=== PATIENT | female | born 1955 | race Caucasian/White ===

== ENCOUNTER → 2016-09-23 | Outpatient (CLI) | payer BC, OTHER ==
[2016-09-23 08:48] LABS: Basophils # (A) 0.1 k/uL (0-0.2); Basophils % (A) 1 %; CH 29.4; CHCM 32.3; Eosinophils # (A) 0.3 k/uL (0-0.7); Eosinophils % (A) 4 %; HCT 45.9 % (34.0-46.0); HDW 2.15; Luc # (Auto) 0.16; Luc % (Auto) 2; Lymphocytes # (A) 1.8 k/uL (1.0-4.8); Lymphocytes % (A) 22 %; MCHC 32.8 g/dL (31.0-37.0); MCV 91.5 fL (80.0-100.0); Mean Platelet Volume 7.3; Monocytes # (A) 0.4 k/uL (0-1.0); Monocytes % (A) 5 %; Neutrophils # (A) 5.6 k/uL (1.3-7.7); Neutrophils % (A) 67 %; RBC 5.01 m/uL (3.80-5.40); RDW 13.5 % (11.5-15.5); WBC 8.3 k/uL (3.8-10.6); WBC (Perox) 8.18
[2016-09-23 11:59] LABS: Erythrocyte Sedimentation Rate 31 mm/hr (0-20)
[2016-09-23 12:28] LABS: ALT 21 U/L (9-52); AST 24 U/L (14-36); Alkaline Phosphatase 113 U/L (38-126); Anion Gap 12 mmol/L; Blood Urea Nitrogen 15 mg/dL (7-17); Calcium 9.4 mg/dL (8.4-10.2); Carbon Dioxide 24 mmol/L (22-30); Chloride 106 mmol/L (98-107); Cholesterol 166 mg/dL (<200); Glucose 103 mg/dL (74-99); HDL Cholesterol 70 mg/dL (40-60); Non-African American GFR(MDRD) >60 (>60 ml/min/1.73 sqM); Sodium 142 mmol/L (137-145); Total Bilirubin 0.8 mg/dL (0.2-1.3); Total Protein 8.4 g/dL (6.3-8.2); Triglycerides 92 mg/dL (<150)
[2016-09-23 13:18] LABS: Vitamin B12 263 pg/mL (239-931)
== END | disposition home or self-care (01) ==
LOC: LABWHC1 07:54
PROVIDERS: ATTEND Internal Medicine
DX: R53.1 Weakness (principal); R53.83 Other fatigue
CPT/HCPCS: 36415; 80053; 80061; 82607; 84439; 84443; 85025; 85652; 86038

== ENCOUNTER → 2016-10-07 | Outpatient (CLI) | payer BC, OTHER ==
--- NOTE | 2016-10-07 09:58 | ECHOF ---
Referral Reason:I48.91 afib M62.81 weakness R53.83 fatigue MEASUREMENTS -------- HEIGHT: 167.6 cm WEIGHT: 124.7 kg BP: IVSd: 1.3 cm (0.6 - 1.1) LVIDd: 4.3 cm (3.9 - 5.3) LVPWd: 1.2 cm (0.6 - 1.1) IVSs: 1.4 cm LVIDs: 2.8 cm LVPWs: 1.4 cm Ao Diam: 2.6 cm (2.0 - 3.7) AV Cusp: 2.1 cm (1.5 - 2.6) LA Diam: 3.5 cm (2.7 - 3.8) MV EXCURSION: 19.089 mm (> 18.000) MV EF SLOPE: 124 mm/s (70 - 150) EPSS: 0.3 cm MV E Michael: 1.01 m/s MV DecT: 179 ms MV A Michael: 0.88 m/s MV E/A Ratio: 1.15 RAP: 5.00 mmHg RVSP: 9.71 mmHg FINDINGS -------- Sinus rhythm. This was a technically adequate study. There is mild concentric left ventricular hypertrophy. Overall left ventricular systolic function is normal with, an EF between 55 - 60 %. The right ventricle is normal in size and function. The left atrium is normal in size. The right atrium is normal in size. The aortic valve is trileaflet, and appears structurally normal. No aortic stenosis or regurgitation. There is trace mitral regurgitation. Trace tricuspid regurgitation present. The right ventricular systolic pressure, as measured by Doppler, is 9.71mmHg. Pulmonic valve appears structurally normal. The aortic root size is normal. The pericardium is normal. CONCLUSIONS -------- 1. Sinus rhythm. 2. Trace tricuspid regurgitation present. 3. The right ventricular systolic pressure, as measured by Doppler, is 9.71mmHg. 4. Pulmonic valve appears structurally normal. 5. The aortic root size is normal. 6. The pericardium is normal. 7. This was a technically adequate study. 8. There is mild concentric left ventricular hypertrophy. 9. Overall left ventricular systolic function is normal with, an EF between 55 - 60 %. 10. The right ventricle is normal in size and function. 11. The left atrium is normal in size. 12. The right atrium is normal in size. 13. The aortic valve is trileaflet, and appears structurally normal. No aortic stenosis or regurgitation. 14. There is trace mitral regurgitation. TIMBER SETTER: Michelle Solo RDCS
== END ==
LOC: RADECHMAIN 08:25
PROVIDERS: ATTEND Internal Medicine
DX: I34.0 Nonrheumatic mitral (valve) insufficiency (principal); I51.7 Cardiomegaly; I07.1 Rheumatic tricuspid insufficiency
CPT/HCPCS: 93306

== ENCOUNTER → 2017-01-13 | Outpatient (CLI) | payer BC, OTHER ==
--- NOTE | 2017-01-13 13:10 | US ---
EXAMINATION TYPE: US venous doppler duplex LE LT DATE OF EXAM: 01/13/2017 11:53 AM COMPARISON: NONE CLINICAL HISTORY: M79.662 Pain in Left Lower Limb. SIDE PERFORMED: LEFT TECHNIQUE: The lower extremity deep venous system is examined utilizing real time linear array sonog malgorzata with graded compression, doppler sonography and color-flow sonography. VESSELS IMAGED: External Iliac Vein (EIV) Common Femoral Vein Deep Femoral Vein Greater Saphenous Vein * Femoral Vein Popliteal Vein Small Saphenous Vein * Proximal Calf Veins (* superficial vessels) Left Leg: Negative for DVT preliminary results given to Eli at Dr. Hargrove office. IMPRESSION: 1. Left lower extremity negative for ultrasound evidence of deep venous thrombosis.
== END | disposition home or self-care (01) ==
LOC: RADUSWWP 11:49
PROVIDERS: ATTEND Internal Medicine
DX: M79.662 Pain in left lower leg (principal); Z88.0 Allergy status to penicillin

== ENCOUNTER → 2017-04-08 | Outpatient (CLI) | payer BC, OTHER ==
[2017-04-08 08:31] LABS: Basophils # (A) 0.1 k/uL (0-0.2); Basophils % (A) 1 %; CH 30.1; CHCM 31.9; Eosinophils # (A) 0.2 k/uL (0-0.7); Eosinophils % (A) 3 %; HCT 49.6 % (34.0-46.0); HDW 2.11; HGB 15.4 gm/dL (11.4-16.0); Luc # (Auto) 0.13; Luc % (Auto) 2; Lymphocytes # (A) 1.7 k/uL (1.0-4.8); Lymphocytes % (A) 23 %; MCH 29.3 pg (25.0-35.0); MCV 94.5 fL (80.0-100.0); Mean Platelet Volume 7.1; Monocytes # (A) 0.5 k/uL (0-1.0); Monocytes % (A) 7 %; Neutrophils % (A) 65 %; RBC 5.25 m/uL (3.80-5.40); RDW 13.2 % (11.5-15.5); WBC 7.6 k/uL (3.8-10.6)
[2017-04-08 08:43] LABS: Potassium 4.7 mmol/L (3.5-5.1)
== END | disposition home or self-care (01) ==
LOC: LABPAT 07:57
PROVIDERS: ATTEND Orthopaedic Surgery
DX: Z01.812 Encounter for preprocedural laboratory examination (principal); G56.01 Carpal tunnel syndrome, right upper limb
CPT/HCPCS: 36415; 80051; 85025

== ENCOUNTER 2018-06-30 16:11 | Emergency (ER) | payer BC, OTHER ==
[2018-06-30 16:25] VITALS: BP 147/76; PULSE 81; RESP 18; TEMP 99.3
[2018-06-30] MEDS ORDERED: ACETAMINOPHEN TAB 500 MG TAB PO STA ×2 (16:46→16:54)
[2018-06-30] MEDS ORDERED: LIDOCAINE 5% PATCH TOPICAL STA (16:47)
--- NOTE | 2018-06-30 16:51 | ED ---
General Adult HPI - General Chief complaint: Extremity Problem,Nontraumatic Stated complaint: Lt leg pain Source: patient, RN notes reviewed Mode of arrival: ambulatory Limitations: no limitations - History of Present Illness Initial comments: Patient is a 62-year-old female with history of degenerative disc disease and osteoarthritis who presents to the emergency department with complaint of left hip pain that radiates to the front of her thigh. She states this pain is been there since around [facility] and denies any injury or trauma at that time. She reports having similar symptoms in the past. She reports the pain is worse while walking. She has taken Aleve at home for pain today. Patient denies any recent fever, chills, shortness of breath, chest pain, back pain, abdominal pain , nausea or vomiting, numbness or tingling, bladder or bowel incontinence, saddle anesthesia, headaches or visual changes, or any other complaints. - Related Data Home Medications Medication Instructions Recorded Confirmed Metoprolol Succinate (ER) [Toprol 100 mg PO HS 09/05/15 05/28/17 XL] Albuterol Sulfate [Proventil Hfa] 2 puff INHALATION Q6HR PRN 09/06/15 05/28/17 Cetirizine HCl [Zyrtec] 10 mg PO HS 09/06/15 05/28/17 Citalopram Hydrobromide 40 mg PO HS 09/06/15 05/28/17 [Citalopram HBr] Diltiazem HCl [Cartia Xt] 180 mg PO HS 09/06/15 05/28/17 Hydrocodone/Acetaminophen 1 tab PO Q6H PRN 09/06/15 05/28/17 [Hydrocodone-Acetamin 7.5-325] Pyridoxine [Vitamin B-6] 50 mg PO DAILY 05/27/17 05/28/17 Vitamin E (Dl,Tocopheryl Acet) 400 unit PO DAILY 05/27/17 05/28/17 [Vitamin E] Previous Rx's Medication Instructions Recorded Acetaminophen Tab [Tylenol] 1,000 mg PO TID PRN 5 Days tablet 06/30/18 Lidocaine 5% Patch [Lidoderm] 1 patch TOPICAL DAILY PRN #7 patch 06/30/18 Allergies Allergy/AdvReac Type Severity Reaction Status Date / Time Penicillins Allergy Rash/Hives Verified 05/27/17 13:20 Review of Systems ROS Statement: Those systems with pertinent positive or pertinent negative responses have been documented in the HPI. ROS Other: All systems not noted in ROS Statement are negative. Past Medical History Past Medical History: Atrial Fibrillation, Asthma, Osteoarthritis (OA) Additional Past Medical History / Comment(s): having irregular bowel movements, migraines History of Any Multi-Drug Resistant Organisms: None Reported Past Surgical History: Cardiac Ablation, Joint Replacement, Orthopedic Surgery Additional Past Surgical History / Comment(s): Right hip replacement,pete carpel tunnel Past Anesthesia/Blood Transfusion Reactions: No Reported Reaction Past Psychological History: Depression Smoking Status: Never smoker Past Alcohol Use History: None Reported Past Drug Use History: None Reported - Past Family History Father Family Medical History: Cancer Additional Family Medical History / Comment(s): colon. paternal grandmother- colon CA Brother(s) Family Medical History: Cancer Mother Family Medical History: Cancer, Deep Vein Thrombosis (DVT), Pulmonary Embolus General Exam Limitations: no limitations General appearance: alert, in no apparent distress Head exam: Present: atraumatic, normocephalic Eye exam: Present: normal appearance Respiratory exam: Present: normal lung sounds bilaterally Cardiovascular Exam: Present: regular rate, normal rhythm Extremities exam: Present: tenderness (Slight tenderness to left hip with palpation.), normal capillary refill, other (Sensation intact.) Back exam: Absent: tenderness Neurological exam: Present: alert, oriented X3, other (Able to walk with a slight limp.) Psychiatric exam: Present: normal affect, normal mood Course Vital Signs 06/30/18 06/30/18 16:21 18:02 Temperature 99.3 F 99.3 F Pulse Rate 81 81 Respiratory 18 18 Rate Blood Pressure 147/76 147/76 O2 Sat by Pulse 96 96 Oximetry Medical Decision Making - Medical Decision Making X-ray of the left hip and pelvis reveals moderate osteoarthritis in the left hip joint. No fracture. X-ray of the lumbar spine reveals degenerative mild first-degree L4-5 spondylolisthesis. No fracture. Spondylotic changes. Patient has an orthopedic physician and has an appointment scheduled. Will prescribe Tylenol and Lidoderm. Case discussed in detail with attending physician Dr. Hopkins. Disposition Clinical Impression: Osteoarthritis, Spondylolisthesis at L4-L5 level Disposition: HOME SELF-CARE Condition: Good Instructions: Osteoarthritis (ED), Spondylolisthesis (ED) Additional Instructions: Follow-up with your PCP in 1 to 2 days. Follow-up with orthopedics in 1 to 2 days. Return to the emergency department if your symptoms worsen or any other concerns. Prescriptions: Acetaminophen Tab [Tylenol] 1,000 mg PO TID PRN 5 Days tablet PRN Reason: Pain Lidocaine 5% Patch [Lidoderm] 1 patch TOPICAL DAILY PRN #7 patch PRN Reason: Pain Is patient prescribed a controlled substance at d/c from ED?: No Referrals: Juni Lam MD [Primary Care Provider] - 1-2 days Time of Disposition: 17:59
[2018-06-30] MEDS ORDERED: CYCLOBENZAPRINE 10 MG TAB PO STA (16:52)
--- NOTE | 2018-06-30 17:08 | XR ---
EXAMINATION TYPE: XR Hip LT and AP Pelvis DATE OF EXAM: 06/30/2018 COMPARISON: NONE HISTORY: Low back pain TECHNIQUE: A single AP view of the pelvis is obtained. Two views of the left hip are obtained. FINDINGS: The pelvic ring is intact. There is a right hip prosthesis. There is moderate narrowing of the left hip joint space with spurring of the acetabulum. There is spurring on the left femoral head. I see no fracture. Sacroiliac joints are intact. IMPRESSION: Moderate osteoarthritis in the left hip joint. No fracture.
--- NOTE | 2018-06-30 17:09 | XR ---
EXAMINATION TYPE: XR lumbar spine 2 or 3V DATE OF EXAM: 06/30/2018 COMPARISON: NONE HISTORY: Back pain TECHNIQUE: 3 views FINDINGS: Vertebra have fairly normal alignment. There is 5 mm anterior subluxation of L4 in relation L5. The posterior elements are intact. There is hypertrophic spurring of the endplates. There is vac uum disc at L4-5 and L5-S1. Sacroiliac joints are intact. IMPRESSION: Degenerative mild first-degree L4-5 spondylolisthesis. No fracture. Spondylotic changes.
== END 2018-06-30 18:02 | disposition home or self-care (01) ==
LOC: EC 16:11
DX: M16.12 Unilateral primary osteoarthritis, left hip (principal); M43.16 Spondylolisthesis, lumbar region; I48.91 Unspecified atrial fibrillation; J45.909 Unspecified asthma, uncomplicated; F32.9 Major depressive disorder, single episode, unspecified; Z79.899 Other long term (current) drug therapy; Z88.0 Allergy status to penicillin; Z96.641 Presence of right artificial hip joint
CPT/HCPCS: 72100; 73502; 99283

== ENCOUNTER → 2018-08-14 | Outpatient (CLI) | payer BC ==
--- NOTE | 2018-08-16 13:28 | MM ---
Reason for exam: screening (asymptomatic). Last mammogram was performed 3 years and 8 months ago. History: Patient is postmenopausal. Family history of breast cancer in cousin, breast cancer in mother at age 75, and premenopausal breast cancer in aunt at age 45. Took hormonal contraceptives for 26 years 6 months beginning at age 34. Physical Findings: A clinical breast exam by your physician is recommended on an annual basis and results should be correlated with mammographic findings. MG 3D Screening Mammo W/Cad Bilateral CC and MLO view(s) were taken. Prior study comparison: December 14, 2014, bilateral MG screening mammo w CAD. February 16, 2013, bilateral digital screening mammo w/CAD. The breast tissue is almost entirely fat. No significant changes when compared with prior studies. ASSESSMENT: Benign, BI-RAD 2 RECOMMENDATION: Routine screening mammogram of both breasts in 1 year.
== END | disposition home or self-care (01) ==
LOC: RADMAMWWP 08:17
PROVIDERS: ATTEND Internal Medicine
DX: Z12.31 Encounter for screening mammogram for malignant neoplasm of breast (principal)
CPT/HCPCS: 77063; 77067

== ENCOUNTER → 2018-08-24 | Outpatient (CLI) | payer BC ==
[2018-08-24 09:56] LABS: Basophils # (A) 0.1 k/uL (0-0.2); Basophils % (A) 1 %; Eosinophils # (A) 0.3 k/uL (0-0.7); Eosinophils % (A) 3 %; HCT 47.4 % (34.0-46.0); HGB 15.1 gm/dL (11.4-16.0); Lymphocytes # (A) 0.7 k/uL (1.0-4.8); Lymphocytes % (A) 10 %; MCH 29.2 pg (25.0-35.0); MCHC 31.8 g/dL (31.0-37.0); MCV 91.8 fL (80.0-100.0); Mean Platelet Volume 6.6; Monocytes # (A) 0.7 k/uL (0-1.0); Monocytes % (A) 10 %; Neutrophils # (A) 5.4 k/uL (1.3-7.7); Neutrophils % (A) 74 %; Platelet Count 336 k/uL (150-450); RBC 5.16 m/uL (3.80-5.40); RDW 13.5 % (11.5-15.5); WBC 7.4 k/uL (3.8-10.6)
[2018-08-24 17:55] LABS: Albumin 4.3 g/dL (3.80-4.90); Albumin/Globulin Ratio 1.34 (1.60-3.17); Anion Gap 10.2 mmol/L (4.00-12.00); Calcium 9.4 mg/dL (8.7-10.3); Carbon Dioxide 23.8 mmol/L (21.6-31.8); Globulin 3.2 g/dL (1.6-3.3); LDL Cholesterol,Calculated 75.8 mg/dL (0.0-131.0); Potassium 4.5 mmol/L (3.5-5.5); Total Bilirubin 0.4 mg/dL (0.3-1.2); Total Protein 7.5 g/dL (6.2-8.2); VLDL Calculation 13.2 mg/dL (5.00-40.00)
== END ==
LOC: LABWHC1 08:50
PROVIDERS: ATTEND Internal Medicine
DX: Z00.00 Encounter for general adult medical examination without abnormal findings (principal); E78.5 Hyperlipidemia, unspecified; I10 Essential (primary) hypertension
CPT/HCPCS: 36415; 80053; 80061; 84439; 84443; 85025

== ENCOUNTER → 2019-03-15 | Outpatient (CLI) | payer BC ==
--- NOTE | 2019-03-15 12:41 | XR ---
EXAMINATION TYPE: XR chest 2V DATE OF EXAM: 03/15/2019 COMPARISON: None INDICATION: Mild intermittent asthma TECHNIQUE: Frontal and lateral views of the chest are obtained. FINDINGS: The heart size is normal. The pulmonary vasculature is normal. The lungs are clear. IMPRESSION: 1. No acute pulmonary process.
== END | disposition home or self-care (01) ==
LOC: RADXRMAIN 10:03
PROVIDERS: ATTEND Family Medicine
DX: J45.20 Mild intermittent asthma, uncomplicated (principal)
CPT/HCPCS: 71046

== ENCOUNTER → 2020-04-20 | Outpatient (CLI) | payer BC ==
--- NOTE | 2020-04-23 12:15 | MM ---
Reason for exam: screening (asymptomatic). Last mammogram was performed 1 year and 8 months ago. History: Patient is postmenopausal. Family history of breast cancer in cousin, breast cancer in mother at age 75, and premenopausal breast cancer in aunt at age 45. Took hormonal contraceptives for 26 years 6 months beginning at age 34. Physical Findings: A clinical breast exam by your physician is recommended on an annual basis and results should be correlated with mammographic findings. MG 3D Screening Mammo W/Cad Bilateral CC and MLO view(s) were taken. Prior study comparison: August 14, 2018, bilateral MG 3d screening mammo w/cad. December 14, 2014, bilateral MG screening mammo w CAD. There are scattered fibroglandular densities. There are benign appearing regional round calcifications bilaterally. There is no discrete abnormality. ASSESSMENT: Benign, BI-RAD 2 RECOMMENDATION: Routine screening mammogram of both breasts in 1 year.
== END | disposition home or self-care (01) ==
LOC: RADMAMWWP 16:13
PROVIDERS: ATTEND Family Medicine
DX: Z12.31 Encounter for screening mammogram for malignant neoplasm of breast (principal)
CPT/HCPCS: 77063; 77067

== ENCOUNTER → 2021-07-31 | Outpatient (CLI) | payer BC ==
--- NOTE | 2021-08-02 11:46 | MM ---
Reason for exam: screening (asymptomatic). Last mammogram was performed 1 year and 3 months ago. History: Patient is postmenopausal. Family history of breast cancer in mother at age 75 and premenopausal breast cancer in paternal aunt at age 45. Took hormonal contraceptives for 26 years 6 months beginning at age 34. Physical Findings: A clinical breast exam by your physician is recommended on an annual basis and results should be correlated with mammographic findings. MG 3D Screening Mammo W/Cad Bilateral CC and MLO view(s) were taken. XCCL view(s) were taken of the left breast. Prior study comparison: April 20, 2020, bilateral MG 3d screening mammo w/cad. August 14, 2018, bilateral MG 3d screening mammo w/cad. There are scattered fibroglandular densities. Stable benign dermal calcifications on the left. No significant changes when compared with prior studies. ASSESSMENT: Benign, BI-RAD 2 RECOMMENDATION: Routine screening mammogram of both breasts in 1 year.
== END | disposition home or self-care (01) ==
LOC: RADMAMWWP 13:33
PROVIDERS: ATTEND Family Medicine
DX: Z12.31 Encounter for screening mammogram for malignant neoplasm of breast (principal)
CPT/HCPCS: 77063; 77067

== ENCOUNTER 2021-09-17 17:47 | Emergency (ER) | payer BC ==
[2021-09-17 18:49] VITALS: BP 118/78; PULSE 89; RESP 19; TEMP 98.7
== END 2021-09-17 19:51 | disposition left against medical advice (07) ==
LOC: EC 17:47
DX: Z53.21 Procedure and treatment not carried out due to patient leaving prior to being seen by health care provider (principal)
CPT/HCPCS: 87635

== ENCOUNTER → 2022-08-29 | Outpatient (CLI) | payer BC ==
--- NOTE | 2022-10-01 12:28 | EM ---
EVENT MONITOR INDICATIONS: Palpitations. FINDINGS: This event monitor showed sinus rhythm with episodes of sinus tachycardia. Rare PVCs and PACs. There was 1 short self-limited run of paroxysmal atrial tachycardia noted. CONCLUSION: This 24-hour Holter reveals sinus rhythm with self-limited runs of paroxysmal atrial tachycardia. MMMAUREEN / YOJANA: [id number] /
== END | disposition home or self-care (01) ==
LOC: RADECHMAIN 08:09
PROVIDERS: ATTEND Family Medicine
DX: I47.1 Supraventricular tachycardia (principal); R00.2 Palpitations
CPT/HCPCS: 93270

== ENCOUNTER → 2022-09-19 | Outpatient (CLI) | payer BC ==
--- NOTE | 2022-09-20 12:49 | MR ---
EXAMINATION TYPE: MR lumbar spine wo con DATE OF EXAM: 09/19/2022 COMPARISON: NONE HISTORY: Pain on left side in thigh and calf x3 years TECHNIQUE: T1 and T2 axial and sagittal images of the lumbar spine are submitted. FINDINGS: There is no abnormal signal seen within the visualized spinal cord or paraspinal soft tissu es. There is severe degenerative disc disease at all levels with discogenic marrow changes, hypertrophic spurring. There appears to be severe degenerative disc disease involving the visualized portions of t he lower thoracic spine included on the sagittal views only. There appears to be arthropathy of the i nterspinous joints at numerous levels compatible with [place]'s disease. At T12-L1 there is hypertrophic posterior spondylosis and spurring with severe degenerative disc dise ase. There is moderate left and mild right foraminal encroachment but no canal stenosis or focal donavan iation. Advanced facet arthropathy. At L1-2 there is severe degenerative disc disease with posterior spondylotic spur formation and facet arthropathy. There does appear to be broad-based disc protrusion with a more focal tiny right parace ntral disc herniation. This results in moderate to severe canal stenosis and bilateral foraminal encr oachment. At L2-3 there is advanced facet arthropathy with ligamentum flavum hypertrophy and broad-based disc b ulging and severe degenerative disc disease. Posterior spondylosis noted with spurring. Findings resu lt in moderate canal stenosis and bilateral foraminal encroachment. At L3-4 there is advanced facet arthropathy. There is ligamentum flavum hypertrophy. There is circumf erential disc bulging with moderate right and moderate to severe left foraminal encroachment. Moderat e canal stenosis. At L4-5 there is advanced facet arthropathy with ligamentum flavum hypertrophy and broad-based disc p rotrusion. There is a grade 1 anterolisthesis which appears degenerative. There is moderate to severe bilateral foraminal encroachment and moderate to severe canal stenosis. At L5-S1 there is severe degenerative disc disease with advanced facet arthropathy greater on the lef t. Ligamentum flavum hypertrophy is seen and there is moderate to severe bilateral foraminal encroach ment with circumferential disc bulging. There is a greater left-sided lateral compression of the thec al sac with moderate to severe canal stenosis. IMPRESSION: 1. Severe degenerative disc disease and facet arthropathy at all visualized levels resulting in sign ificant bilateral foraminal encroachment and significant multilevel canal stenosis as discussed above . 2. Tiny right paracentral disc herniation L1-L2. 3. Hypertrophic and degenerative changes at L4-L5 result in grade 1 anterolisthesis. 4. Limited field of view of the lower thoracic spine on the sagittal images demonstrates sagittal dis c bulging or protrusions with severe degenerative disc disease. 5. Correlate for [place]'s disease.
== END | disposition home or self-care (01) ==
LOC: RADMRIMAIN 16:27
PROVIDERS: ATTEND Family Medicine
DX: M51.37 Other intervertebral disc degeneration, lumbosacral region (principal); M47.816 Spondylosis without myelopathy or radiculopathy, lumbar region; M48.061 Spinal stenosis, lumbar region without neurogenic claudication; M43.16 Spondylolisthesis, lumbar region
CPT/HCPCS: 72148

== ENCOUNTER → 2023-06-02 | Outpatient (CLI) | payer BC ==
[2023-06-02 15:20] LABS: HCT 40.9 % (37.2-46.3); HGB 13.8 g/dL (12.0-15.0); MCH 29.9 pg (27.0-32.0); MCHC 33.7 g/dL (32.0-37.0); MCV 88.5 FL (80.0-97.0); NRBC Per 100 WBC 0 X 10*3/uL (0.00-0.01); Platelet Count 394 X 10*3/uL (140-440); RBC 4.62 X 10*6/uL (4.10-5.20); RDW 13.7 % (11.5-14.5); WBC 8.27 X 10*3/uL (4.50-10.00)
[2023-06-02 15:32] LABS: BUN/Creat Ratio 22.86 Ratio (12.00-20.00); Calcium 9.3 mg/dL (8.7-10.3); Carbon Dioxide 28.8 mmol/L (21.6-31.8); Chloride 98 mmol/L (96-109); Glucose 111 mg/dL (70-110); Potassium 3.9 mmol/L (3.5-5.5); Sodium 139 mmol/L (135-145)
--- NOTE | 2023-06-02 16:04 | XR ---
EXAMINATION TYPE: XR chest 2V DATE OF EXAM: 06/02/2023 COMPARISON: 03/15/2019 HISTORY: 67-year-old female presurgical testing TECHNIQUE: Frontal and lateral views FINDINGS: Heart borderline enlarged. Interstitial prominence. Mild patchy left basilar density. Hyperinflation. No pleural effusion or lucía consolidation. IMPRESSION: 1. Borderline cardiomegaly. 2. COPD. 3. Mild patchy left basilar atelectasis versus early infiltrate.
== END | disposition home or self-care (01) ==
LOC: LABWHC1 09:27
PROVIDERS: ATTEND Neurological Surgery
DX: Z01.818 Encounter for other preprocedural examination (principal); Z01.811 Encounter for preprocedural respiratory examination; J44.9 Chronic obstructive pulmonary disease, unspecified; D64.9 Anemia, unspecified; R73.09 Other abnormal glucose; I49.8 Other specified cardiac arrhythmias
CPT/HCPCS: 36415; 71046; 80048; 83036; 85027; 87086

== ENCOUNTER → 2024-12-13 | Outpatient (CLI) | payer BC, OTHER | END | disposition home or self-care (01) | LOC: LABPAT 10:39 | PROVIDERS: ATTEND Orthopaedic Surgery | DX: Z01.812 Encounter for preprocedural laboratory examination (principal); M17.12 Unilateral primary osteoarthritis, left knee; Z22.322 Carrier or suspected carrier of Methicillin resistant Staphylococcus aureus | CPT/HCPCS: 87070 ==

== ENCOUNTER 2024-12-20 08:18 | Day surgery (SDC) | payer BC, OTHER ==
[2024-12-15 12:38] VITALS: BMI 39.4
--- NOTE | 2024-12-19 08:22 | P.HPOR ---
History of Present Illness H&P Date: 12/19/24 Chief Complaint: Left knee pain Is a 69-year-old female who presents with progressive left knee pain for the past several years. She has diffuse pain with weightbearing activities. She is having night symptoms. She has tried injections along with medications without much relief. She notes daily pain that limits her normal function and activities. Review of Systems Per HPI Past Medical History Past Medical History: Atrial Fibrillation, Asthma, Diabetes Mellitus, Osteoarthritis (OA) Additional Past Medical History / Comment(s): having irregular bowel movements,migraines. Per PCP H+P Type II Diabetic. History of Any Multi-Drug Resistant Organisms: None Reported Past Surgical History: Cardiac Ablation, Joint Replacement, Orthopedic Surgery Additional Past Surgical History / Comment(s): Right hip replacement,pete carpel tunnel. Lt hip replacement. Colonoscopy, lumbar fusion Past Anesthesia/Blood Transfusion Reactions: No Reported Reaction Additional Past Anesthesia/Blood Transfusion Reaction / Comment(s): No hx of blood transfusion to date. Smoking Status: Never smoker - Past Family History Father Family Medical History: Cancer Additional Family Medical History / Comment(s): colon. paternal grandmother- colon CA Brother(s) Family Medical History: Cancer Mother Family Medical History: Cancer, Deep Vein Thrombosis (DVT), Pulmonary Embolus Additional Family Medical History / Comment(s): Maternal grandmother-cancer Medications and Allergies Home Medications Medication Instructions Recorded Confirmed Type Metoprolol Succinate (ER) [Toprol 100 mg PO HS 09/05/15 12/15/24 History XL] Albuterol Sulfate [Proventil Hfa] 2 puff INHALATION Q6HR PRN 09/06/15 12/15/24 History Cetirizine HCl [Zyrtec] 10 mg PO HS 09/06/15 12/15/24 History dilTIAZem HCL [Cartia Xt] 180 mg PO HS 09/06/15 12/15/24 History Acetaminophen Tab [Tylenol] 1,000 mg PO TID PRN 5 Days tablet 06/30/18 12/15/24 Rx ARIPiprazole [Abilify] 5 mg PO HS 12/15/24 12/15/24 History Aleve (Unknown Dose) 1 dose PO DIRECTED PRN 12/15/24 12/15/24 History DULoxetine HCL [Cymbalta] 60 mg PO BID 12/15/24 12/15/24 History Dulaglutide [Trulicity] 0.75 mg SQ FR 12/15/24 12/15/24 History Morphine Sulfate ER [Ms Contin] 30 mg PO Q12HR 12/15/24 12/15/24 History Oxycodone/Acetaminophen 5 - 325 mg PO BID PRN 12/15/24 12/15/24 History Ubrogepant [Ubrelvy] 50 mg PO BID PRN 12/15/24 12/15/24 History metFORMIN HCL [Glucophage] 500 mg PO 1700 12/15/24 12/15/24 History Allergies Allergy/AdvReac Type Severity Reaction Status Date / Time Penicillins Allergy Rash/Hives Verified 12/15/24 12:08 Physical Examination - Knee left Effusion grade: grade 2 Tenderness with palpation: anterior, medial, lateral Gait: limping ROM: extension: -15 degrees ROM: flexion: 90 degrees Crepitus with motion: Yes Strength: extension: 5/5 Strength: flexion: 5/5 Meniscal tests: medial meniscal tests: positive, lateral meniscal tests: positive, medial joint line pain: positive, lateral joint line pain: positive Results The patient is a well-developed well-nourished female approximately 5 foot 4, 237 pounds of endomorphic habitus. HEENT exam is nonfocal, neck is supple. She has painless passive motion of her left hip. Straight leg raise is negative. She is tender about the medial and lateral joint line of the left knee. Collaterals are stable, Caity's negative, Bertha's is equivocal. Her distal neurovascular dam appears intact in the left lower extremity. She does have an antalgic gait pattern. - Diagnostic results Knee x-ray: image reviewed (X-rays of the left knee obtained the office show severe tricompartmental osteoarthrosis with subchondral sclerosis and [id number] changes.) Assessment and Plan Assessment: Left knee severe tricompartmental osteoarthrosis obesity Plan: I talked to the patient at length regarding her condition along with treatment options. At this point she is quite symptomatic and limited having pain and mechanical symptoms despite conservative measures. After a thorough discussion she opts to proceed with surgery. We will plan to proceed with a left total knee arthroplasty. Risks and benefits were discussed at length in layman's terms. We will institute DVT prophylaxis postoperatively.
[~2024-12-20 08:18] MED LIST: HYDROmorphone 0.5 MG/0.5 ML SYRINGE IVP PRN; TRANEXAMIC 1,000 MG/100ML-NACL 1,000 MG in SALINE 1 100ML.BAG IVPB PRN
[2024-12-20] MEDS: MELOXICAM 7.5 MG TAB PO PRN (09:06)
[2024-12-20] MEDS: ACETAMINOPHEN TAB 500 MG TAB PO PRN (09:06)
[2024-12-20] MEDS: IV FLUID CONTINUATION 1,000 ML IV ONE (09:17)
[2024-12-20 09:26] LABS: Glucose,Whole Blood 118 mg/dL (70-110)
[2024-12-20] MEDS: DEXAMETHASONE SOD PHOSPHATE 4 MG/ML 1 ML VIAL IV ONE (09:29)
[2024-12-20] MEDS: ONDANSETRON 4 MG/2 ML VIAL IVP ONE (09:29)
[2024-12-20] MEDS: LACTATED RINGERS 1,000 ML IV SCH (09:30)
[2024-12-20] MEDS: MIDAZOLAM 2 MG/2 ML VIAL IV PRN (09:43)
[2024-12-20] MEDS ORDERED: KETAMINE HCL IN 0.9 % NACL 50 MG/5 ML SYRINGE ONE (10:05)
[2024-12-20] MEDS ORDERED: HYDROmorphone (PF) 1 MG/ML ONE (10:05)
[2024-12-20] MEDS ORDERED: NEOSTIGMINE 1 MG/ML 10 ML VIAL ONE (10:05)
[2024-12-20] MEDS ORDERED: fentaNYL (PF) 50 MCG/ML 2 ML AMP ONE (10:05)
[2024-12-20] MEDS ORDERED: DEXAMETHASONE SOD PHOSPHATE 4 MG/ML 1 ML VIAL ONE (10:05)
[2024-12-20] MEDS ORDERED: PROPOFOL 10 MG/ML 20 ML VIAL IV ONE (10:05)
[2024-12-20] MEDS ORDERED: TRANEXAMIC 1,000 MG/100ML-NACL PREMIX BAG ONE (10:05)
[2024-12-20] MEDS ORDERED: ROPIVACAINE 5 MG/ML 30 ML VIAL ONE (10:05)
[2024-12-20] MEDS ORDERED: ROCURONIUM 10 MG/ML (5 ML VIAL) IV ONE (10:05)
[2024-12-20] MEDS ORDERED: LIDOCAINE 1% INJ 10MG/ML (20 ML MDV) ONE (10:05)
[2024-12-20] MEDS ORDERED: GLYCOPYRROLATE 0.2 MG/ML 2 ML VIAL ONE (10:05)
[2024-12-20] MEDS ORDERED: SUCCINYLCHOLINE CHLORIDE 200 MG/10 ML VIAL IV ONE (10:05)
--- NOTE | 2024-12-20 10:06 | P.ANPRN ---
Procedure Note - Anesthesia - Nerve Block Performed Left iPack Single Time Out Performed: Yes Date of Procedure: 12/20/24 Procedure Start Time: 09:43 Procedure Stop Time: 09:48 Location of Patient: PreOp Indication: Acute Post-Operative Pain, Analgesia, Requested by Surgeon Sedation Type: Sedate with meaningful contact maintained Preparation: Sterile Prep Position: Right Lateral Catheter: None Needle Types: Pajunk Needle Gauge: 21 Ultrasound used to visualize needle placement: Yes Ultrasound used to observe medication spread: Yes Injectate: 0.5% Ropivacaine (see comment for volume) ([id number]) Blood Aspirated: No Pain Paresthesia on Injection Noted: No Resistance on Injection: Normal Image Stored and Saved: Yes Events: Uneventful and Well Tolerated
--- NOTE | 2024-12-20 10:07 | P.ANPRN ---
Procedure Note - Anesthesia - Nerve Block Performed Left Adductor Canal Infusion Time Out Performed: Yes Date of Procedure: 12/20/24 Procedure Start Time: 09:48 Procedure Stop Time: 09:53 Location of Patient: PreOp Indication: Acute Post-Operative Pain, Analgesia, Requested by Surgeon Sedation Type: Sedate with meaningful contact maintained Preparation: Sterile Prep Position: Supine Catheter: Indwelling Needle Types: On-Q Ultrasound used to visualize needle placement: Yes Ultrasound used to observe medication spread: Yes Injectate: 0.5% Ropivacaine (see comment for volume) ([id number]) Blood Aspirated: No Pain Paresthesia on Injection Noted: No Resistance on Injection: Normal Image Stored and Saved: Yes Events: Uneventful and Well Tolerated
[2024-12-20] MEDS: ceFAZolin 1,000 MG in SODIUM CHLORIDE 0.9% 1,000 ML IRRIGATION ONE (10:22)
[2024-12-20] MEDS ORDERED: ONDANSETRON 4 MG/2 ML VIAL IVP PRN (11:54)
[2024-12-20] MEDS ORDERED: NALOXONE 0.4 MG/ML 1 ML VIAL IV PRN (11:54)
[2024-12-20] MEDS ORDERED: MAGNESIUM HYDROXIDE 2,400 MG/30 ML CUP PO PRN (11:54)
[2024-12-20] MEDS ORDERED: hydrOXYzine HCL 25 MG TAB PO PRN (11:54)
[2024-12-20] MEDS ORDERED: oxyCODONE-APAP 5-325MG 1 EACH TAB PO PRN (11:58)
[2024-12-20] MEDS: LACTATED RINGERS 1,000 ML IV ONE (12:02)
--- NOTE | 2024-12-20 12:19 | P.OP ---
Date of Procedure: 12/20/24 Preoperative Diagnosis: Left knee severe tricompartmental osteoarthrosis Postoperative Diagnosis: Same Procedure(s) Performed: Left total knee arthroplastycruciate retainingcemented Implants: [employer] journey 2 size 4 cemented femoral component, size 3 cemented tibial component, 12 mm articular surface, 32 mm cemented patellar component. This is a cruciate retaining implant. Anesthesia: [facility] Surgeon: Stuart Garcia Granular Operator #1: Lance Ashraf Estimated Blood Loss (ml): 50 Pathology: none sent Condition: stable Disposition: PACU Indications for Procedure: The patient is a 69-year-old female who presents with progressive left knee pain secondary to osteoarthrosis despite conservative measures. A discussion of the risks and benefits of operative intervention versus continued conservative measures was made with the patient. She opted to proceed with surgery. Operative risks include infection, neurovascular injury, development of blood clots, fracture, instability, possible component loosening/failure and possible need for subsequent procedures was discussed. Informed consent was obtained. Operative Findings: As below Description of Procedure: The patient was brought to the operating room, and after induction of spinal anesthesia the left lower extremity was prepped and draped in a normal fashion. The tourniquet was inflated to 270 mmHg. A longitudinal incision extending 3 finger breaths above the superior pole of the patella extending to the medial aspect the tibial tubercle was then made. The skin and subcutaneous tissues were divided sharply. Electrocautery was used for hemostasis. A medial parapatellar arthrotomy was then performed. The medial soft tissues to include the superficial and deep portions of the medial collateral ligament as well as the medial hamstring tendons were elevated subperiosteally. The proximal medial tibia osteophytes were carefully removed. The patella was everted. The knee was flexed. A portion of the retropatellar fat pad was excised sharply. The anterior cruciate ligament was sacrificed. A starting hole was made in the distal femur 1 cm anterior to the posterior cruciate origin. An intramedullary femoral guide was gently inserted planning on 5 valgus distal cut with 9 mm distal resection. The cutting block was pinned in place. The distal cut was then made. The posterior referencing sizing guide was utilized. 3 of external rotation was built into the system and verified off the trans- epicondylar axis and the posterior condyles. I felt size 4 was most appropriate. The cutting block was pinned in place. The anterior, posterior, and chamfer cuts were then made. The bone fragments were removed. A sulcus cut was then made with the appropriate guide. The trial size 4 femoral component was then placed and was fully seated. There was good anterior to posterior and medial to lateral fit. The distal peg holes were then drilled. The trial component was then removed. Attention was then paid towards preparing the proximal tibia. An extra medullary guide was utilized in line with the tibial shaft and second metatarsal distally. A 3 posterior slope was planned. I planned on 4 mm resection from the medial compartment. The cutting block was pinned in place. The proximal tibial cut was then made. The bone was removed in one fragment. The remnants of the medial and lateral menisci were excised the capsule junction with electrocautery. The tibia sized most appropriately at size 3. The posterior osteophytes off the distal femur were carefully removed with a curved osteotome. The trial tibial and femoral components were placed along with a 12 millimeters articular surface. I was able to obtain full flexion and extension with good stability with varus and valgus stress. After several flexion and extension cycles, the tibial rotation was marked with electrocautery in line with the medial one third of the tibial tubercle. Attention was then paid towards preparing the patella. A patella reamer was utilized taking this down to 14 mm of bone stock. A good flush cut was made. The patella sized most appropriately at 32 millimeters. The peg holes were then drilled. The trial component was placed. The knee was taken through a range of motion. I had good patellofemoral tracking with no hands technique. The trial components were then removed. The tibia was prepared in the appropriate rotation with appropriate drill and keel punch. The flexion and extension gaps were checked and felt to be symmetric. The bony surfaces were prepared with pulsatile lavage and dried. The deep tibial component was then cemented in place and was fully seated. Excess cement was removed. The femoral component was cemented in place and was fully seated. Again excess cement was removed. The trial 12 millimeters surface was then inserted in the knee was put in full extension. The patella component was cemented in place. After the cement had sufficiently hardened, the knee was again taken through a range of motion. Again there was good stability in flexion and extension with varus and valgus stress. The trial articular surface was then removed. The final articular surface was placed and was impacted. Care was taken to avoid any soft tissue interposition. Pulsatile lavage was again utilized. The tourniquet was deflated with approximately 65 minutes total tourniquet time. There was minimal drainage therefore a deep drain was not placed. The medial parapatellar arthrotomy was then closed with #2 Ethibond suture. The subcutaneous tissues were reapproximated interrupted 2-0 Vicryl sutures. The skin was reapproximated with 3-0 subarticular strata fix suture. Skin tape and adhesive was applied. A sterile dressing was applied. The patient was then awoken from sedation and transferred to recovery room in good condition. Blood loss was estimated at 50 milliliters. No complications were incurred. Sponge and needle counts were correct at the end the case. Lance KING assisted during the major components this case to include exposure, bone resection, and implantation.
[2024-12-20 12:34] LABS: Glucose,Whole Blood 139 mg/dL (70-110)
[2024-12-20] MEDS: ROPIVACAINE 1,100 MG, SODIUM CHLORIDE 0.9% 500 ML 330 ML, EMPTY PAIN BALL 1 EACH MISCELLANE PRN (12:39)
--- NOTE | 2024-12-20 12:48 | XR ---
EXAMINATION TYPE: XR knee limited LT DATE OF EXAM: 12/20/2024 12:41 PM INDICATION: Patient age:Female; 69 years old; Reason for study: Evaluation for Postop abnormality and alignment; PHH. pain COMPARISON: None. TECHNIQUE: The Left knee(s) was examined in frontal and lateral projections. FINDINGS: Status post total knee arthroplasty changes with hardware in appropriate alignment and in tact. No evidence of fracture. Subcutaneous lucencies and lucencies within the joint consistent with surgical changes. Prepatellar soft tissue swelling. IMPRESSION: Status post total knee arthroplasty changes with hardware intact and appropriate alignment. No fractu res identified. [facility], , 12/20/2024 12:45 PM
[2024-12-20] MEDS: HYDROmorphone 0.5 MG/0.5 ML SYRINGE IVP PRN ×2 (15:45→20:59)
[2024-12-20] MEDS: oxyCODONE-APAP 7.5-325MG 1 EACH TAB PO PRN (16:55)
[2024-12-20] MEDS ORDERED: DEXTROSE 50% SYRINGE 50 ML IVP PRN ×2 (17:21)
[2024-12-20] MEDS ORDERED: ALBUTEROL NEBULIZED 2.5 MG/3 ML INHALATION PRN (17:23)
[2024-12-20] MEDS ORDERED: NON FORMULARY DRUG (Ubrogepant [Ubrelvy] 50 MG Tablet) PO PRN (17:23)
[2024-12-20 17:38] LABS: Glucose,Whole Blood 165 mg/dL (70-110)
[2024-12-20] MEDS: INSULIN LISPRO (HumaLOG) 100 UNIT/ML 10 mL VL SQ SCH (17:44)
[2024-12-20 20:30] LABS: Glucose,Whole Blood 149 mg/dL (70-110)
[2024-12-20 20:55] VITALS: RESP 17
[2024-12-20] MEDS: SENNOSIDES-DOCUSATE SODIUM 1 EACH TAB PO SCH (20:57)
[2024-12-20] MEDS: DILTIAZEM CD 180 MG CAP.ER.24H PO SCH (20:57)
[2024-12-20] MEDS: DULoxetine HCL 60 MG CAPSULE.DR PO SCH (20:59)
[2024-12-20] MEDS: LORATADINE 10 MG TAB PO SCH (20:59)
[2024-12-20] MEDS: ARIPiprazole 5 MG TAB PO SCH (20:59)
[2024-12-20] MEDS: METOPROLOL SUCCINATE (ER) 100 MG TAB.ER.24H PO SCH (20:59)
[2024-12-21 06:24] LABS: Glucose,Whole Blood 162 mg/dL (70-110)
[2024-12-21 08:22] LABS: Basophils # (A) 0.03 X 10*3/uL (0.00-0.10); Basophils % (A) 0.2 %; Eosinophils # (A) 0 X 10*3/uL (0.04-0.35); Eosinophils % (A) 0 %; HCT 42.0 % (37.2-46.3); HGB 14.0 g/dL (12.0-15.0); Immature Grans, Automated 0.50 %; Lymphocytes # (A) 1.18 X 10*3/uL (0.90-5.00); Lymphocytes % (A) 9.4 %; MCH 29.7 pg (27.0-32.0); MCHC 33.3 g/dL (32.0-37.0); MCV 89.2 FL (80.0-97.0); Monocytes # (A) 0.68 X 10*3/uL (0.20-1.00); Monocytes % (A) 5.4 %; NRBC Per 100 WBC 0 X 10*3/uL (0.00-0.01); Neutrophils # (A) 10.59 X 10*3/uL (1.80-7.70); Neutrophils % (A) 84.5 %; Platelet Count 310 X 10*3/uL (140-440); RBC 4.71 X 10*6/uL (4.10-5.20); RDW 13.4 % (11.5-14.5); WBC 12.54 X 10*3/uL (4.50-10.00)
[2024-12-21 09:15] VITALS: BP 101/67; PULSE 68; TEMP 98.1
[2024-12-21] MEDS: RIVAROXABAN 10 MG TAB PO SCH (09:48)
--- NOTE | 2024-12-21 12:05 | P.PN ---
Subjective Progress Note Date: 12/21/24 Principal diagnosis: Left knee osteoarthritis Patient was seen at bedside this morning sitting up in chair with dressing present over left knee and On-Q in place. Patient says she just finished working with therapy and walked down the way and up and down steps. She says she does have a walker for home and is looking forward to going home later today. She says the pain has been ranging between 3 and 7 since her surgery yesterday. Says she has urinated since surgery without issue. No bowel movement yet. Denies any other issues at this time. Objective - Vital Signs Vital signs: Vital Signs Temp 98.1 F 12/21/24 08:00 Pulse 68 12/21/24 08:00 Resp 17 12/21/24 08:00 BP 101/67 12/21/24 08:00 Pulse Ox 95 12/21/24 08:00 FiO2 Intake & Output 12/20/24 12/21/24 12/21/24 18:59 06:59 18:59 Intake Total 1301 200 Output Total 250 1150 Balance 1051 -1150 200 Weight 105.6 kg Intake: IV 1301 Oral 200 Output: Urine 200 1150 Estimated Blood Loss 50 Other: Voiding Method Toilet Toilet # Voids 1 2 # Bowel Movements 0 - Exam Left knee: Incision is clean, dry, and intact. The exofin fusion tape is in good condition. There is minimal soft tissue swelling and ecchymosis surrounding the medial and lateral aspects of the incision. Calf is soft, no tenderness with palpation. Plantar flexion, dorsiflexion, EHL, FHL are intact. Sensory exam to light touch throughout the extremity is intact, dorsal pedis pulses 2+. - Labs CBC & Chem 7: 12/21/24 03:53 Labs: Abnormal Lab Results - Last 24 Hours (Table) 12/20/24 12/20/24 12/20/24 Range/Units 12:33 17:36 20:27 WBC (4.50-10.00) X 10*3/uL Immature Gran # (0.00-0.04) X 10*3/uL Neutrophils # (1.80-7.70) X 10*3/uL Eosinophils # (0.04-0.35) X 10*3/uL POC Glucose (mg/dL) 139 H 165 H 149 H (70-110) mg/dL 12/21/24 12/21/24 Range/Units 03:53 06:21 WBC 12.54 H (4.50-10.00) X 10*3/uL Immature Gran # 0.06 H (0.00-0.04) X 10*3/uL Neutrophils # 10.59 H (1.80-7.70) X 10*3/uL Eosinophils # 0 L (0.04-0.35) X 10*3/uL POC Glucose (mg/dL) 162 H (70-110) mg/dL Assessment and Plan Assessment: 1. Left knee osteoarthritis -Postop day 1 status post left total knee arthroplasty Plan: 1. Left knee osteoarthritis -left total knee arthroplasty performed yesterday, 12/20/2024. Patient stable bedside this morning. Patient to do well with therapy. Patient does have a walker for home. Pain under control with oral medication. Discharge home today with health services. 2. Appreciate medical management 3. Pain management -Percocet 4. DVT prophylaxis -Xarelto in hospital. Going home with Eliquis 2.5 mg twice daily x 2 weeks 5. GI prophylaxis - senna 6. PT/OT -weightbearing as tolerated with walker 7. Encourage incentive spirometer use 8. Discharge planning -home today with health services Time with Patient: Less than 30
[2024-12-21 12:08] LABS: Glucose,Whole Blood 254 mg/dL (70-110)
--- NOTE | 2024-12-21 12:10 | P.DS ---
Providers Date of admission: 12/20/2024 Expected date of discharge: 12/21/24 Attending physician: Stuart Garcia Consults: 12/20/24 12:00 Consult Physician Routine Consulting Provider: Misbah Kern Consult Reason/Comments: Medical Management s/p left total knee arthroplasty Do you want consulting provider notified?: Yes Primary care physician: Edwardo Melo [facility] Course: Date of admission: 12/20/2024 Date of discharge: 12/21/2024 Admission diagnosis: Left knee osteoarthritis Discharge diagnosis: Same Attending physician: Dr. Garcia Surgical procedures: Left total knee arthroplasty Brief history: Patient is a 69-year-old female with a history of progressive primary left knee osteoarthritis. At this point patient has failed conservative treatment measures and has opted to proceed with a elective left total knee arthroplasty. Hospital course: Details of patient's surgery can be found in operative report. Patient tolerated the procedure well and was subsequently transported to orthopedic floor. Patient's orthopeidc and medical care was provided daily. Patient had daily laboratory tests performed for evaluation of overall blood counts. Patient had daily physical therapy to include strengthening range of motion as well as education with walker ambulation. Patient was treated with Xarelto for their postoperative DVT prophylaxis during their inpatient stay. Patient was noted to have a relatively uneventful postoperative course. Patient reported satisfactory pain control with oral pain medications by postoperative day 1. Patient showed satisfactory progress with physical therapy. Patient moved steadily through the program and had no difficulty meeting the goals by postoperative day 1. Given patient's otherwise satisfactory course and having met physical therapy goals, plan is to discharge patient home with all services on postoperative day 1. Discharge condition/disposition: Patient will be discharged home with health services in stable condition. Discharge medications: Instructions are given on resumption of patient's normal daily medications per primary care recommendation, in addition patient will be prescribed Percocet; senna; Eliquis 2.5 milligrams twice daily x 2 weeks. Discharge instructions: 1. Wound care and infection precautions, keep incision dry and covered while showering, no lotions, creams, moisturizers. No soaking, tubs, pools, hottubs. Do not scrub over the incision. 2. Weight-bear as tolerated with walker / cane until follow-up. 3. Ice and elevate when necessary. Do not exceed 20 minutes per hour with ice pack. 4. Utilize compression sleeve until seen at first follow up appointment. 5. Visiting nursing care. 6. Home physical therapy. 7. Pain meds and anticoagulants per prescription. 8. Pain medication has potential to cause constipation. Increase oral fluid and fiber intake. Contact primary care provider if you have not had a bowel movement within 48 hours after discharge 9. No anti-inflammatory medication until discussed at first post operative visit, this including Motrin, Aleve, Mobic, Diclofenac. 10. Follow up in office at 2 weeks postop with Parshanth Madrigal PA-C / Lance Ashraf PA-C 11. Follow up with your primary care doctor 7-10 days after discharge. 12. Contact [facility] with any questions, . Assessment: Left knee osteoarthritis Procedures: Left total knee arthroplasty Patient Condition at Discharge: Good Plan - Discharge Summary Discharge Rx Participant: Yes New Discharge Prescriptions: New oxyCODONE-APAP 7.5-325MG [Percocet 7.5-325 mg] 1 tab PO Q6HR PRN #28 tab PRN Reason: Pain Apixaban [Eliquis] 2.5 mg PO BID #60 tab Sennosides/Docusate Sodium [Senna Plus 8.6-50 mg Softgel] 1 each PO DAILY #20 capsule Discontinued Oxycodone/Acetaminophen 5 - 325 mg PO BID PRN PRN Reason: Pain No Action Metoprolol Succinate (ER) [Toprol XL] 100 mg PO HS dilTIAZem HCL [Cartia Xt] 180 mg PO HS Albuterol Sulfate [Proventil Hfa] 2 puff INHALATION Q6HR PRN PRN Reason: Shortness Of Breath Cetirizine HCl [Zyrtec] 10 mg PO HS Ubrogepant [Ubrelvy] 50 mg PO BID PRN PRN Reason: Migraine Headache Dulaglutide [Trulicity] 0.75 mg SQ FR Aleve (Unknown Dose) 1 dose PO DIRECTED PRN PRN Reason: Pain metFORMIN HCL [Glucophage] 500 mg PO 1700 Morphine Sulfate ER [Ms Contin] 30 mg PO Q12HR DULoxetine HCL [Cymbalta] 60 mg PO BID ARIPiprazole [Abilify] 5 mg PO HS Discharge Medication List Metoprolol Succinate (ER) [Toprol XL] 100 mg PO HS 09/05/15 [History] Albuterol Sulfate [Proventil Hfa] 2 puff INHALATION Q6HR PRN 09/06/15 [History] Cetirizine HCl [Zyrtec] 10 mg PO HS 09/06/15 [History] dilTIAZem HCL [Cartia Xt] 180 mg PO HS 09/06/15 [History] ARIPiprazole [Abilify] 5 mg PO HS 12/15/24 [History] Aleve (Unknown Dose) 1 dose PO DIRECTED PRN 12/15/24 [History] DULoxetine HCL [Cymbalta] 60 mg PO BID 12/15/24 [History] Dulaglutide [Trulicity] 0.75 mg SQ FR 12/15/24 [History] Morphine Sulfate ER [Ms Contin] 30 mg PO Q12HR 12/15/24 [History] Ubrogepant [Ubrelvy] 50 mg PO BID PRN 12/15/24 [History] metFORMIN HCL [Glucophage] 500 mg PO 1700 12/15/24 [History] Apixaban [Eliquis] 2.5 mg PO BID #60 tab 12/21/24 [Rx] Sennosides/Docusate Sodium [Senna Plus 8.6-50 mg Softgel] 1 each PO DAILY #20 capsule 12/21/24 [Rx] oxyCODONE-APAP 7.5-325MG [Percocet 7.5-325 mg] 1 tab PO Q6HR PRN #28 tab 12/21/24 [Rx] Follow up Appointment(s)/Referral(s): [facility], [NON-STAFF] - 1-2 Days ([facility] will call you to schedule your in home nursing and physical therapy visits. ) Lance Ashraf, SCOTT [PHYSICIAN BATCH ATTENDANT] - 01/04/25 9:20 am [facility],Equipment [NON-STAFF] - As Needed (*Call [facility] once home to arrange delivery of the Continuous Passive Motion (CPM) machine. ) Patient Instructions/Handouts: Knee Replacement (GEN) Activity/Diet/Wound Care/Special Instructions: Orthopedic Discharge Instructions: 1. Wound care and infection precautions, keep incision dry and covered while showering, no lotions, creams, moisturizers. No soaking, pools, hot tubs. Do not scrub over incision. 2. Weight-bear as tolerated with walker / cane until follow-up. 3. Ice and elevate when necessary. Do not exceed 20 minutes per hour with ice pack. 4. Utilize compression sleeve until seen at first follow up appointment. 5. Pain meds and anticoagulants per prescription. 6. Pain medication has potential to cause constipation. Increase oral fluid and fiber intake. Contact primary care provider if you have not had a bowel movement within 48 hours after discharge. 7. No anti-inflammatory medication until discussed at first post operative visit, this including Motrin, Aleve, Mobic, Diclofenac. 8. Follow up in office at 2 weeks postop with Prashanth Madrigal PA-C / Lance Ashraf PA-C 9. Follow up with your primary care doctor 7-10 days after discharge. 10. Contact [facility] with any questions, . Keep incision clean, dry, intact. While showering, cover fusion tape with Saran wrap. Keep fusion tape on until follow-up appt in office in 2 weeks. Discharge Disposition: HOME WITH HOME HEALTH SERVICES
== END 2024-12-21 12:54 | disposition home health service (06) ==
LOC: OR 08:18 → 4SSUR 12:15 → OR 12-21 12:54
PROVIDERS: ATTEND Orthopaedic Surgery
DX: M17.12 Unilateral primary osteoarthritis, left knee (principal); E11.9 Type 2 diabetes mellitus without complications; E66.9 Obesity, unspecified; I48.91 Unspecified atrial fibrillation; J45.909 Unspecified asthma, uncomplicated; G89.18 Other acute postprocedural pain; Z79.01 Long term (current) use of anticoagulants; Z79.84 Long term (current) use of oral hypoglycemic drugs; Z88.0 Allergy status to penicillin; Z79.899 Other long term (current) drug therapy; Z80.0 Family history of malignant neoplasm of digestive organs
CPT/HCPCS: 97161; 64448; 64473; 85025; 83036; 73560; 27447; C1713 ×2; C1776; C1751; J2250; J1100; J0690 ×3; J2405; J2795; J1171 ×2